=== PATIENT | female | born 1980 | race Caucasian/White ===

== ENCOUNTER 2018-10-24 17:18 | Emergency (ER) | payer MEDICAID ==
--- NOTE | 2018-10-24 17:52 | ED Physician Chart ---
ED Chief Complaint/HPI - Patient Information Date Seen:: 10/24/18 Time Seen:: 17:40 Chief Complaint:: tachycardia History of Present Illness:: Patient states by accident she thinks she took 1 Adderall 30 mg extended release 2-3 hours ago. She has been taking amoxicillin for an upper respiratory tract infection and she thinks she took the Adderall instead. About 1 hour later she developed tachycardia headache pounding headache. Allergies:: Allergies Allergy/AdvReac Type Severity Reaction Status Date / Time No Known Allergies Allergy Verified 10/24/18 17:37 Historian:: Patient Review:: Nurse's Note Reviewed ED Review of Systems - Review of Systems General/Constitutional: No fever, No chills ED Past Medical History - Past Medical History Past Medical History: Other (anxiety) Family History: Diabetes Melitus, HTN Social History: Non Smoker, No Alcohol Surgical History: other (tubal ligation) Psychiatricy History: Other (anxiety) Medication: Reviewed Family Medical History - Family Member Daughter Living Status: Still Living Other Medical History: adhd ED Physical Exam - Physical Examination General/Constitutional: Awake, Well-developed, well-nourished, Alert, No distress, GCS 15, Non-toxic appearing, Ambulatory Head: Atraumatic Eyes: Lids, conjuctiva normal, PERRL, EOMI Skin: Nl inspection, No rash, No skin lesions, No ecchymosis, Well hydrated, No lymphadenopathy ENMT: External ears, nose nl, Nasal exam nl, Lips, teeth, gums nl Neck: Nontender, Full ROM w/o pain, No JVD, No nuchal rigidity, No bruit, No mass, No stridor Respiratory: Nl effort/Exclusion, Clear to Auscultation, No Wheeze/Rhonchi/Rales Cardio Vascular: RRR, No murmur, gallop, rubs, NL S1 S2 GI: No tenderness/rebounding/guarding, No organomegaly, No hernia, Normal BS's, Nondistended, No mass/bruits, No McBurney tenderness : No CVA tenderness Extremities: No tenderness or effusion, Full ROM, normal strength in all extremities, No edema, Normal digits & nails Neuro/Psych: Alert/oriented, DTR's symmetric, Normal sensory exam, Normal motor strength, Judgement/insight normal, Mood normal, Normal gait, No focal deficits Misc: Normal back, No paraspinal tenderness ED Assessment - Assessment General Assessment: At 1825 patient felt better. Her heart rate was down to 94. Poison control was contacted by the triage nurse and poison control personnel stated that the effects of the Adderall would be gone in about 7 hours. ED Reassessment (Disposition) - Reassessment Reassessment Condition:: Improved - Diagnosis Diagnosis:: Medication (Adderall) side effect); accidental medication ingestion - Patient Disposition Discharge/Transfer:: Home Condition at Disposition:: Stable, Improved
== END 2018-10-24 19:45 | disposition home or self-care (01) ==
LOC: ER 17:18
DX: R00.0 Tachycardia, unspecified (principal); T36.0X5A Adverse effect of penicillins, initial encounter; T43.625A Adverse effect of amphetamines, initial encounter; Y92.89 Other specified places as the place of occurrence of the external cause
CPT/HCPCS: Z7610